=== PATIENT | male | born 1970 | race African-American/Black ===

== ENCOUNTER 2022-01-25 22:32 | Emergency (ER) | payer MEDICAID ==
[~2022-01-25] VITALS: Ht 179.1 cm; Wt 106.8 kg
[2022-01-26] MEDS ORDERED: cephalexin 500mg capsule PO ONE (04:40)
[2022-01-26] MEDS ORDERED: LIDOcaine 1% W/epiNEPHrine 1:100,000 20ml vial SQ ONE (04:40)
[2022-01-26] MEDS ORDERED: LIDOCAINE 1%/EPI 1:100,000 inj. 10 ML multi-dose vial SQ ONE (04:45)
[2022-01-26] MEDS ORDERED: CEPH-585 PO (05:17)
[2022-01-26 05:36] VITALS: BP 135/78
== END 2022-01-26 05:38 | disposition home or self-care (01) ==
LOC: ER 22:34
DX: L02.212 Cutaneous abscess of back [any part, except buttock and flank] (principal)
CPT/HCPCS: 10060; 99283; A6266; A6449

== ENCOUNTER 2022-08-14 22:54 | Emergency (ER) | payer MEDICAID ==
[~2022-08-14] VITALS: Ht 177.8 cm; Wt 104.5 kg
[2022-08-14 22:57] VITALS: BP 134/88
[2022-08-14] MEDS ORDERED: bacitracin 15gm ointment TP ONE (23:15)
[2022-08-14] MEDS ORDERED: cephalexin 250mg capsule PO ONE (23:25)
[2022-08-14] MEDS ORDERED: SULF1TAB45 PO (23:25)
[2022-08-14] MEDS ORDERED: sulfamethoxazole/trimethoprim DS (800/160mg) tablet PO ONE (23:25)
[2022-08-14] MEDS ORDERED: CEPH-585 PO (23:25)
== END 2022-08-14 23:53 | disposition home or self-care (01) ==
LOC: ER 22:55
DX: S80.812A Abrasion, left lower leg, initial encounter (principal); L02.416 Cutaneous abscess of left lower limb; L03.116 Cellulitis of left lower limb; Z72.89 Other problems related to lifestyle; Z79.2 Long term (current) use of antibiotics; Z79.899 Other long term (current) drug therapy; X58.XXXA Exposure to other specified factors, initial encounter; Y93.89 Activity, other specified; Y92.89 Other specified places as the place of occurrence of the external cause; Y99.8 Other external cause status
CPT/HCPCS: 99284; A6223